=== PATIENT | male | born 2000 | race Caucasian/White ===

== ENCOUNTER 2019-12-20 19:51 | Emergency (ER) | payer OTHER, SELFPAY ==
[2019-12-20 20:13] VITALS: BP 136/80; PULSE 70; RESP 18; TEMP 36.7; O2SAT 95; BMI 17.8
--- NOTE | 2019-12-20 20:25 | HMH.EDUTC ---
[facility] [place] Clinical Impression: Screening for STD (sexually transmitted disease) Disposition: Home, Self-Care Condition on Discharge: Good Instructions: Facts About Sexually Transmitted Infections, How to Detect and Treat STDs, HIV Home Test Kits: Are All Created Equal?, HIV Support (Alternative Therapy), HIV Infection and AIDS, Hepatitis C, Hepatitis B, Hepatitis A Additional Instructions: Make sure to Practice safe sex until you get your test results back Make sure to follow up with your Family Doctor for test results and treatment if needed Return if needed Straight to ER if any life threatening symptoms Referrals: PCP,No [Primary Care Provider] - As needed Time of Disposition: 20:34 Medical Decision Making - Jagdish Inquiry Pt receiving controlled substance: No Jagdish was queried for this patient: No Vital Signs: 12/20/19 20:13 12/20/19 20:47 Temperature 98.1 F 97.8 F Temperature Source Oral Oral Pulse Rate 80 Pulse Rate [Radial] 70 Respiratory Rate 18 19 Blood Pressure 136/80 Blood Pressure [Right Arm] 136/80 Blood Pressure Mean [Right Arm] 98 Blood Pressure Source Automatic Cuff Blood Pressure Source [Right Arm] Automatic Cuff Blood Pressure Position Sitting Blood Pressure Position [Right Arm] Sitting 02 Sat by Pulse Oximetry 95 Oxygen Delivery Method Room Air Room Air Orders (Tests/Meds): ORDERS Category Date Time Status HIV Panel [id number] Stat Lab 12/20/19 20:45 Received Hepatitis Panel (4) Stat Lab 12/20/19 20:45 Received [facility] [place] - General Stated complaint: STD test Time Seen by Provider: 12/20/19 20:25 Mode of Arrival: Ambulatory Source of Information: Patient Limitations: No Limitations Description of Symptoms (Recalled from Triage Doc. by RN): STD TEST HEENT Symptoms (Recalled from RN notes): No Resp Symptoms (Recalled from RN notes): No Skin Symptoms (Recalled from RN notes): No MS Symptoms (Recalled from RN notes): No Functional Status (Recalled from RN notes): WNL - History of Present Illness Provider Complaint: Patient states that he come in tonight to get checked for STD's, Hepatitis and HIV states that he isnt having any symptoms and denies known exposure but wanted to get tested to make sure that he doesnt have anything - Related Data Previous Rx's Medication Instructions Recorded Diclofenac Sodium [Diclofenac 75mg 75 mg PO BID 7 Days #15 tab 09/30/18 Tab] Fluoxetine HCl [Prozac 20mg 20 mg PO DAILY 30 Days #30 cap 09/30/18 Capsule] Ondansetron [Zofran 4mg ODT] 4 mg PO Q8HP PRN #20 tab.rapdis 04/07/19 Oseltamivir Phosphate [Tamiflu 75 mg PO BID #10 cap 04/07/19 75mg Capsule] Allergies Allergy/AdvReac Type Severity Reaction Status Date / Time amoxicillin Allergy Verified 02/05/18 18:09 Penicillins Allergy Verified 09/30/18 08:38 - Worker's Comp Is this a Worker's Comp case?: No [facility] History - Hepatitis A Screen Drug use history?: No High risk sexual behaviors?: No History of sexually transmitted infection?: No Currently employed?: No Childcare worker?: No Do you have indoor plumbing?: Yes Do you have electricity?: Yes Attestation statement:: This patient has been screened for Hepatitis A risk factors. I have reviewed the patient's past medical history: Yes Laterality Cases: Bilateral: Tonsillectomy - Social History Smoking Status: Current every day smoker Tobacco Type: e-cigarettes # Packs/Day (cigarettes): 0 Alcohol Intake: never Occupational Status: other Household Members: other Family Hx:: Unable to obtain ROS Obtained: Yes All systems reviewed & no additional complaints, Yes Systems reviewed as appropriate & no additional complaints Physical Exam - General General appearance: alert, in no apparent distress - ENT ENT exam: Present: normal exam, normal oropharynx, mucous membranes moist, TM's normal bilaterally, normal external ear exam - Respiratory Respiratory exam: Present: normal lung s
[2019-12-20 20:47] VITALS: BP 136/80; PULSE 80; RESP 19; TEMP 36.6; O2SAT 98
[2019-12-23 05:06] LABS: Hep A Ab, IgM Negative (Negative); Hepatitis B Core Antibody IgM Negative (Negative); Hepatitis B Surface Antigen Negative (Negative)
[2019-12-23 15:19] LABS: HIV Screen 4th Generation wRfx Non Reactive (Non Reactive)
[2019-12-23 15:20] LABS: Hepatitis C Antibody <0.1 s/co ratio (0.0-0.9)
[2019-12-24 03:16] LABS: Neisseria gonorrhoeae, NAA Negative (Negative)
== END 2019-12-20 20:49 | disposition home or self-care (01) ==
PROVIDERS: Emergency Provider Nurse Practitioner
DX: Z11.3 Encounter for screening for infections with a predominantly sexual mode of transmission (principal)
CPT/HCPCS: 80074; 86703; 87491; 87591; 99202; G0432

== ENCOUNTER 2021-05-28 20:46 | Emergency (ER) | payer OTHER, SELFPAY ==
[2021-05-28 21:01] VITALS: BP 137/84; PULSE 88; RESP 16; TEMP 37; O2SAT 97; BMI 17.6
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
--- NOTE | 2021-05-28 22:11 | PC.NURSE ---
Checked pt condition. Warm blanket given. No new needs.
[2021-05-28 22:16] LABS: Basophils % 0.4 % (0.1-2.0); Eosinophils % 0.4 % (0.1-12.0); Hematocrit 44.6 % (42.0-52.0); Hemoglobin 14.8 g/dL (14.1-18.0); Lymphocytes % 11.7 % (10-50); Mean Corpuscular HGB Conc 33.2 g/dL (31.8-35.4); Mean Corpuscular Hemoglobin 31.1 pg (27.0-31.2); Mean Corpuscular Volume 93.7 fl (80-94); Mean Platelet Volume 7.9 fl (7.4-10.4); Monocytes # 0.4 K/mm3 (0.1-1.0); Monocytes % 4.7 % (1.7-9.3); Neutrophils # 7.5 K/mm3 (1.8-7.8); Neutrophils % 82.8 % (37.0-80.0); Platelet Count 244 K/mm3 (142-424); Red Blood Count 4.76 M/mm3 (4.60-6.20); Red Cell Distribution Width 12.9 % (11.5-17.5)
[2021-05-28 22:18] LABS: Alanine Aminotransferase 15 U/L (12-78); Albumin Level 4.9 g/dl (3.5-5.0); Albumin/Globulin Ratio 2.1 (1.1-1.8); Alkaline Phosphatase 55 U/L (38-126); Anion Gap 13.7 mEq/L (5-15); Aspartate Amino Transferase 25 U/L (17-59); Bilirubin,Total 1.1 mg/dl (0.2-1.3); Blood Urea Nitrogen 10 mg/dl (9-20); Calcium 8.8 mg/dl (8.4-10.2); Carbon Dioxide 27 mmol/L (22.0-30.0); Chloride 102 mmol/L (98-107); Creatinine Clearance Estimated 112 mL/min (50-200); Estimated Glomerular Filt Rate 107 ml/min (>60); GFR (African American) 129 ML/MIN (>60); Globulin 2.3 g/dL (1.3-3.2); Glucose 89 mg/dl (74-100); Potassium 3.7 mmoL/L (3.5-5.1); Sodium 139 mmol/L (136-145); Total Protein,Serum 7.2 g/dl (6.3-8.2)
[2021-05-28 23:19] VITALS: BP 127/73; PULSE 81; RESP 16; TEMP 37; O2SAT 97
== END 2021-05-28 23:24 | disposition home or self-care (01) ==
PROVIDERS: Emergency Provider Emergency Medicine; PCP Emergency Medicine
DX: T75.1XXA Unspecified effects of drowning and nonfatal submersion, initial encounter (principal); S83.92XA Sprain of unspecified site of left knee, initial encounter; M25.561 Pain in right knee; R53.1 Weakness; F17.200 Nicotine dependence, unspecified, uncomplicated; Z88.0 Allergy status to penicillin; Z88.1 Allergy status to other antibiotic agents; Z88.3 Allergy status to other anti-infective agents
CPT/HCPCS: 71046; 73562; 80053; 85025; 99284

== ENCOUNTER 2024-10-29 00:24 | Emergency (ER) | payer SELFPAY ==
[2024-10-29 00:39] VITALS: BP 125/83; PULSE 87; RESP 18; TEMP 37; O2SAT 99; BMI 19.1
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
[2024-10-29] MEDS: SULFA/TRIMETHOPRIM 1 TABLET 1 EACH PO (00:59)
[2024-10-29] MEDS: BACITRACIN ZINC OINT 30GM TUBE TP (00:59)
[2024-10-29] MEDS: TET/DIPHTH/PERT-ADULT 0.5ML SYRINGE 0.5 ML IM (01:00)
[2024-10-29 01:12] VITALS: BP 125/83; PULSE 87; RESP 18; TEMP 37; O2SAT 99
== END 2024-10-29 01:16 | disposition home or self-care (01) ==
PROVIDERS: Emergency Provider Emergency Medicine
DX: S61.451A Open bite of right hand, initial encounter (principal); W54.0XXA Bitten by dog, initial encounter
CPT/HCPCS: 90471; 90715; 99283